=== PATIENT | male | born 1965 | race Caucasian/White ===

== ENCOUNTER 2016-11-03 15:58 | Emergency (ER) | payer OTHER, SELFPAY ==
[~2016-11-03 15:58] MED LIST: Iopamidol 370 76% 125 ML VIAL FS ONE; Sodium Chloride 0.9% 1,000 ML BAG ONE
[2016-11-03 16:20] LABS: INR-International Normal Ratio 1.1; PTT 28.6 SEC (22.9-36.1); Prothrombin Time 14.3 SEC (12.0-14.7)
--- NOTE | 2016-11-03 16:25 | RAD ---
PORTABLE SUPINE CHEST: Date: 11/03/16 HISTORY: Trauma. FINDINGS: No comparison. There are multiple posterior right rib fractures. There is hazy opacity in the right chest and evide nce of right effusion. Comminuted fracture of the right clavicle. No pneumothorax seen. Left lung ap pears clear. IMPRESSION: Fracture right clavicle and numerous right rib fractures. Evidence of right effusion. No definite pn eumothorax, although recommend CT for further evaluation. POS: [facility]
[2016-11-03 16:31] LABS: ALT (SGPT) 41 U/L (0-55); AST (SGOT) 126 U/L (5-34); Albumin 4.5 g/dL (3.5-5.0); Alcohol 224 mg/dL (Less than 10); Alkaline Phosphatase 126 U/L (40-150); Anion Gap 21 mmol/L (10-20); BUN (Urea Nitrogen) 4 mg/dL (8.4-25.7); Bilirubin, Total 0.8 mg/dL (0.2-1.2); Calc. Creatinine Clearance 0 mL/min (70-130); Calcium 9.5 mg/dL (7.8-10.44); Carbon Dioxide 22 mmol/L (22-29); Chloride 102 mmol/L (98-107); Estimated GFR-MDRD 83; Globulin 3.3 g/dL (2.4-3.5); Glucose 100 mg/dL (70-105); Potassium 3.1 mmol/L (3.5-5.1); Protein, Total 7.8 g/dL (6.0-8.3); Sodium 142 mmol/L (136-145)
[2016-11-03 16:33] LABS: CKMB 5.1 ng/mL (0-6.6); Troponin I Less than 0.010 ng/mL (< 0.028)
--- NOTE | 2016-11-03 16:34 | RAD ---
RIGHT HUMERUS 1 VIEW: Date: 11/03/16 HISTORY: Trauma. FINDINGS: Single view shows no signs of fracture or dislocation. IMPRESSION: Negative right humerus. POS: [facility]
[2016-11-03 16:36] LABS: #Basophils 0.1 thou/uL (0.0-0.2); #Eosinphils 0.2 thou/uL (0.0-0.7); #Lymphocytes 1.7 thou/uL (1.20-3.40); #Monocytes 0.7 thou/uL (0.11-0.59); #Neutrophils 10.2 thou/uL (1.40-6.50); %Eosinophils 1.7 % (0.0-10.0); %Lymphocytes 13.3 % (21.0-51.0); %Monocytes 5.2 % (0.0-10.0); %Neutrophils 78.9 % (42.0-75.0); MDiff Complete? YES; Macrocytosis SLIGHT = 6-15 cells (100X) (0-5/hpf); Mean Corpuscular HGB CONC 34.7 g/dL (32.0-36.0); Mean Corpuscular Hemoglobin 36.4 pg (27.0-31.0); Mean Corpuscular Volume 104.7 fl (80.0-94.0); Mean Platelet Volume 8.9 fL (7.4-10.4); PLT Morphology Comment Appears Adequate; Platelet Count 312 thou/uL (130-400); RBC Distribution Width 12.6 % (11.5-14.5)
--- NOTE | 2016-11-03 16:37 | RAD ---
RIGHT SHOULDER THREE VIEWS 11/03/16 CLINICAL HISTORY: Trauma, pain. FINDINGS: There is a comminuted, mildly displaced mid shaft right clavicular fracture. Moderate right AC joint osteoarthritis present. There is a high riding right humeral head. There is a fracture involving th e lateral aspect of the right second through seventh ribs. Additional rib fractures would be difficu lt to entirely exclude. IMPRESSION: 1. Comminuted displaced mid shaft right clavicular fracture. 2. High riding right humeral head. 3. Multiple right rib fractures incompletely assessed. Recommend dedicated imaging followup. POS: [facility]
--- NOTE | 2016-11-03 17:39 | CT ---
CT OF THE BRAIN WITHOUT CONTRAST 11/03/16 COMPARISON: None. HISTORY: Fall from a rooftop 15 feet with head trauma. TECHNIQUE: Multiple contiguous axial images were obtained in a CT of the brain without contrast. Sagittal and c oronal reformats were performed. FINDINGS: The brain is normal in morphology and attenuation without focal lesions or confluent areas of infarc tion. There is no evidence of hydrocephalus, intracranial hemorrhage, or extra-axial fluid collectio ns. The calvarium and overlying soft tissues are unremarkable. The visualized paranasal sinuses and mast oid air cells are well aerated. IMPRESSION: No evidence of acute intracranial abnormality. POS: [facility]
--- NOTE | 2016-11-03 17:42 | CT ---
CT OF THE CERVICAL SPINE WITHOUT CONTRAST 11/03/16 COMPARISON: None. HISTORY: Fell from a rooftop 15 feet with neck pain. TECHNIQUE: Multiple contiguous axial images were obtained in a CT of the cervical spine without contrast. Sagit karlie and coronal reformats were performed. FINDINGS: Mild to moderate degenerative changes are seen throughout the cervical spine. The vertebral bodies d emonstrate normal height and alignment without fracture or subluxation. No prevertebral soft tissue swelling is seen. The posterior facets are well aligned. Normal alignment of the skull base with the cervical spine is seen. IMPRESSION: No evidence of acute osseous abnormality of the cervical spine. POS: [facility]
--- NOTE | 2016-11-03 18:14 | CT ---
CT OF THE CHEST WITH CONTRAST CT ABDOMEN AND PELVIS WITH CONTRAST LIMITED CTS OF THE THORACIC AND LUMBOSACRAL SPINE WITH CONTRAST 11/03/16 HISTORY: Patient fell off a root 15 feet. Patient had chest and abdominal trauma. Back pain. TECHNIQUE: 1. Multiple contiguous axial images were obtained in a CT of the chest with contrast. Coronal r eformats were performed. 2. Multiple contiguous axial images were obtained in a CT of the abdomen and pelvis with contra st. Coronal reformats were performed. 3. Limited CTs of the thoracic and lumbosacral spines were performed. Sagittal and coronal refo rmats were created based off images obtained in the chest, abdomen and pelvic CTs. FINDINGS: CT CHEST: There are contusions in the right upper and middle lobes of the lung. There is pleural thickening al eder the posterior aspect of the right lung near the apex. Underlying rib fractures are seen of the 2 nd through 7th ribs. No significant pneumothorax is seen. No left sided infiltrates are seen. No lef t rib fractures are present. Atelectasis is seen in the lung bases. The heart is normal in size without focal cardiac abnormality. No hilar or mediastinal lymphadenopat hy are seen. The chest wall soft tissues are unremarkable. The patient has a comminuted right clavic le fracture. There may be a nondisplaced fracture of the scapula which does not appear to extend to the glenohumeral joint. CT ABDOMEN/PELVIS: There is a calcified gallstone in the gallbladder. There are hypodensities in the bilateral kidneys which likely represent cysts. The liver, adrenal glands, spleen, and pancreas are unremarkable. No f ree air, free fluid or stranding changes are seen in the abdomen or pelvis. The large and small bowel are unremarkable. No abdominal or pelvic lymphadenopathy are seen. Atheros clerotic calcifications are seen in the aorta. The abdominal wall soft tissues are unremarkable. The patient is status post ORIF of the right femur. The bones of the pelvis are unremarkable. LIMITED CT OF THE THORACIC AND LUMBOSACRAL SPINE: Postsurgical changes are seen at the thoracolumbar junction. Degenerative changes are seen in the lo wer thoracic spine and in the lower lumbar spine. The vertebral bodies demonstrate normal height and alignment without acute fracture or subluxation. IMPRESSION: 1. Multiple right rib fractures with underlying pulmonary contusion in the right upper lobe and right middle lobe. 2. Right clavicle fracture. 3. Possible nondisplaced right scapula fracture. 4. Cholelithiasis 5. Bilateral renal cysts 6. No acute intraabdominal injury 7. No acute injury to the spine POS: [facility]
== END 2016-11-03 17:22 | disposition short-term general hospital (02) ==
LOC: MADERS 15:58
DX: S42.021A Displaced fracture of shaft of right clavicle, initial encounter for closed fracture (principal); S22.41XA Multiple fractures of ribs, right side, initial encounter for closed fracture; F17.210 Nicotine dependence, cigarettes, uncomplicated; W17.89XA Other fall from one level to another, initial encounter
CPT/HCPCS: 36415; 70450; 71010; 71260; 72125; 74177; 80053; 80307; 82553; 83735; 83880; 84484; 85025; 85610; 85730; 93005; 94760; 96360; J7050